=== PATIENT | female | born 1985 ===

== ENCOUNTER 2016-10-10 08:15 | Inpatient (IN) | payer SELFPAY ==
[~2016-10-10] VITALS: Ht 170.2 cm; Wt 78.0 kg
[2016-10-10] MEDS ORDERED: LACTATED RINGER'S 1,000 ML IV SCH (08:36)
[2016-10-10] MEDS ORDERED: LACT. RINGERS/OXYTOCIN 20UNITS 1,000 ML IV SCH (08:36)
[2016-10-10] MEDS ORDERED: WITCH HAZEL-GLYCERIN PAD TOP PRN (08:45)
[2016-10-10] MEDS ORDERED: NALBUPHINE HCL 10 MG/1ml INJECTION IM PRN (08:45)
[2016-10-10] MEDS ORDERED: DERMOPLAST 60ML BOTTLE TOP PRN (08:45)
[2016-10-10] MEDS ORDERED: PHISODERM TOP SOLN 240ML BTL TOP PRN (08:45)
[2016-10-10] MEDS ORDERED: LIDOCAINE 2%HCL (LOCAL ANESTH.) INJ 20ML MDV IJ ONE (08:45)
[2016-10-10] MEDS ORDERED: ACETAMINOPHEN 325 MG TAB PO PRN (09:45)
[2016-10-10] MEDS ORDERED: DOCUSATE CALCIUM 240 MG CAP PO SCH (10:00)
[2016-10-10] MEDS: IBUPROFEN 600 MG TAB PO PRN ×2 (10:09→17:56)
[2016-10-10 10:20] LABS: INR 0.91 (0.9-1.15); Partial Thromboplastin Time 28.2 sec (22.64-33.71); Prothrombin Time 9.9 sec (9.37-12.3)
[2016-10-10 10:31] LABS: Basophils # (auto) 0 uL; Basophils % (auto) 0.5 % (0.0-2.0); DEFINITIVE VIEW TRANSMISSION; Eosinophils # (auto) 0.2 uL; Eosinophils % (auto) 2.6 % (0.0-7.0); Hematocrit 32.5 % (36.0-46.0); Hemoglobin 10.6 g/dL (12.2-16.2); Lymphocytes # (auto) 1.7 uL; Lymphocytes % (auto) 20.5 % (10.0-50.0); Mean Corpuscular Hemoglobin 26.3 pg (28.0-32.0); Mean Corpuscular Hgb Conc. 32.6 g/dL (32.0-36.0); Mean Corpuscular Volume 80.6 fL (80.0-100.0); Mean Platelet Volume 9.1 fL (7.4-10.4); Monocytes # (auto) 0.4 uL; Neutrophils # (auto) 5.8 uL; Neutrophils % (auto) 71.4 % (37.0-80.0); Platelet Count (auto) 152 10^3/uL (140-450); Red Cell Distribution Width 17.3 % (11.6-16.0); White Blood Cell 8.2 10^3/uL (4.4-10.8)
[2016-10-10 10:33] LABS: Albumin 2.4 g/dL (3.4-5.0); BUN/Creatinine Ratio 15.3; Bilirubin, Total 0.2 mg/dL (0.2-1.0); Calcium 8.1 mg/dL (8.5-10.1); Potassium 3.9 mmol/L (3.5-5.1); Total Protein 6.1 g/dL (6.4-8.2)
[2016-10-10 13:00] VITALS: BP 110/54
[2016-10-10] MEDS ORDERED: FERR-7 PO (13:48)
[2016-10-10 16:22] VITALS: BP 108/55
[2016-10-10 20:30] VITALS: BP 120/75
[2016-10-11 00:30] VITALS: BP 115/80
[2016-10-11 04:30] VITALS: BP 125/75
[2016-10-11 07:11] VITALS: BP 92/58
[2016-10-11 10:54] VITALS: BP 107/58
[2016-10-11] MEDS ORDERED: TETANUS-DIPTH-ACEL PERTUSSIS 0.5ML SYRG IM ONE (11:00)
[2016-10-11 11:48] VITALS: BP 99/60
[2016-10-11 12:15] VITALS: BP 99/60
== END 2016-10-11 14:00 | disposition home or self-care (01) | DRG 775 ==
LOC: LDRP 08:15
PROVIDERS: ADMIT Obstetrics & Gynecology; ATTEND Obstetrics & Gynecology
PROC: 10E0XZZ Delivery of Products of Conception, External Approach (ICD-10-PCS; principal; 2016-10-10)
PROC: 10907ZC Drainage of Amniotic Fluid, Therapeutic from Products of Conception, Via Natural or Artificial Opening (ICD-10-PCS; 2016-10-10)
DX: O62.3 Precipitate labor (principal); Z37.0 Single live birth; Z3A.39 39 weeks gestation of pregnancy; Z23 Encounter for immunization
CPT/HCPCS: 36415; 59025; 59409; 80053; 80307; 85025; 85610; 85730; 86592; 86850; 86900; 86901; 90715; 96361; 96366; J2590